=== PATIENT | male | born 1945 | race Caucasian/White ===

== ENCOUNTER 2018-12-30 06:30 | Day surgery (SDC) | payer MEDICARE, OTHER ==
[~2018-12-30] VITALS: Ht 180.3 cm; Wt 78.9 kg
[~2018-12-30 06:30] MED LIST: LEVOTHYROXINE50 MCG; LEVOTHYROXINE50 MCG PO; MULTI VITAMIN1 EACH PO; PRAVASTATIN SOD20 MG PO
--- NOTE | 2018-12-30 08:12 | NUR ---
12/30/18 0812 Dina Berry 0803- PT TO PACU. AROUSES TO TOUCH AND VOICE. DENIES PAIN/N/V. BREATHING EASY, UNLABORED SPO2 >95% ON RA. 0810- PT CONTINUES TO REST W/O COMPLAINTS OF P/N/V.
--- NOTE | 2018-12-30 09:26 | NUR ---
PT IS ALERT, ORIENTED AND SUPPORTED BY HIS TAHIRA. ROUTINE SCOPE FOR PT, DID NOT LIKE NOT BEING ABLE TO CELEBRATE FATHER'S DAY BECAUSE OF PREP. FEW QUESTIONS, EXTENDED A BLESSING. WILL FOLLOW NEEDED
--- NOTE | 2018-12-31 10:17 | OR ---
[facility] [address] [place], [place] [address] Signed DATE OF OPERATION: 12/30/2018 SURGEON: Queenie Perkins MD PREOPERATIVE DIAGNOSES: 1. History of hyperplastic polyp in 2013. 2. Family history of colon cancer in a maternal 1st cousin. POSTOPERATIVE DIAGNOSIS: Possible polyp of cecum (excised), minimal diverticular change. PROCEDURE PERFORMED: Total colonoscopy to cecum with cold morcellation polypectomy x1. ANESTHESIA: Intravenous sedation, fentanyl 100 mcg, Versed 5 mg. INDICATION: This 73-year-old white man is a patient of Dr. Alhaji Haro and known to me from the past, having undergone colonoscopy in 2013, at which time, he was found to have a hyperplastic polyp. He is asymptomatic. He does have family history of colon cancer in a maternal 1st cousin. He is admitted at this time to undergo colonoscopy. He understands the risks of bleeding, infection, and perforation. FINDINGS: The prep was excellent. Complete colonoscopy was undertaken to the cecum without question. There was an area highly suggestive though not certain as an adenomatous polyp in the region of the cecum. This was excised with cold morcellation technique. There were few scattered diverticula but no other findings of concern. DESCRIPTION OF PROCEDURE: The patient was brought to the endoscopy suite and placed in lateral decubitus position, given intravenous sedation to a point of slurred speech and nystagmus. Full cardiopulmonary monitoring was maintained. Digital rectal examination was normal. The prostate was palpably without sign of nodule. The Olympus video colonoscope was passed in the rectum and manipulated throughout the colon noting a few scattered diverticula. Ultimately, the cecum was entered and irrigation undertaken. The scope was withdrawn in the distal cecum, was a small mucosal abnormality that was suggestive though not diagnostic of polyp. Narrow-band imaging confirmed this as well. Multiple morcellation bites were taken of the lesion to excise it and specimen passed for Pathology. The Electronically Signed By: QUEENIE PERKINS MD 12/31/18 1017 PATIENT NAME: TRINH GREENWOOD OPERATIVE REPORT DATE OF : 45 REPORT #: [id number] PHYSICIAN: QUEENIE PERKINS MD PCP: ALHAJI HARO DO REPORT IS CONFIDENTIAL AND NOT TO BE RELEASED WITHOUT AUTHORIZATION [facility] [address] [place] [id number] Signed scope was withdrawn from that point and examination throughout showed no sign of other abnormality other than a few diverticula. Retroflexed view of the rectum was normal. Scope was removed and the patient was taken to recovery room in good condition. CONCLUDING DIAGNOSIS: Probable polyp of cecum excised. PLAN: Repeat colonoscopy in 5 years. Irrespective of the histology of the biopsy given family history. MD SOSA Chanel/RETAL /[id number] cc: Alahji Haro DO Copies: ALHAJI HARO DO ~ Electronically Signed By: QUEENIE PERKINS MD 12/31/18 1017 PATIENT NAME: TRINH GREENWOOD OPERATIVE REPORT DATE OF : 45 REPORT #: [id number] PHYSICIAN: QUEENIE PERKINS MD PCP: ALHAJI HARO DO REPORT IS CONFIDENTIAL AND NOT TO BE RELEASED WITHOUT AUTHORIZATION
== END 2018-12-30 08:47 | disposition home or self-care (01) ==
LOC: DS 06:30 → OPS 06:30 → DS 06:45 → OPS 08:47
PROVIDERS: Surgery
PROC: 0DBH8ZZ Excision of Cecum, Via Natural or Artificial Opening Endoscopic (ICD-10-PCS; principal; 2018-12-30 06:45)
DX: Z12.11 Encounter for screening for malignant neoplasm of colon (principal); D12.0 Benign neoplasm of cecum; K57.30 Diverticulosis of large intestine without perforation or abscess without bleeding; E03.9 Hypothyroidism, unspecified; E78.5 Hyperlipidemia, unspecified; G47.30 Sleep apnea, unspecified; Z86.010 Personal history of colon polyps; Z80.0 Family history of malignant neoplasm of digestive organs; Z85.46 Personal history of malignant neoplasm of prostate
CPT/HCPCS: 99153; G0500; J2250; J3010; J7120

== ENCOUNTER 2024-12-05 09:33 | Day surgery (SDC) | payer MEDICARE, OTHER ==
[~2024-12-05] VITALS: Ht 180.3 cm; Wt 81.6 kg
[~2024-12-05 09:33] MED LIST changes: +CEFAZOLIN SODIUM 2 GM/20 ML SYR IV SCH; +CHLORTHALIDONE25 MG PO; +IBLOOD GLUCOSE TEST STRIP 1 EA TEST VI PRN; +LACTATED RINGER'S 1,000 ML IV SCH; +LEVOTHYROXINE75 MCG PO; +LIDOCAINE HCL 1% 5 ML SDV INJ ONE; +LOSARTAN POTASS25 MG PO; +METOPROLOL SUCC50 MG PO; +MIDAZOLAM HCL 5 MG/5 ML VIAL IV PRN; +POTASSIUM CHLO10 ME1 PO; +fentaNYL citrate 100 MCG/2 ML VIAL IV PRN
[2024-12-05 09:52] VITALS: BP 155/74
[2024-12-05] MEDS ORDERED: fentaNYL citrate 100 MCG/2 ML VIAL ONE (11:23)
[2024-12-05] MEDS ORDERED: MIDAZOLAM HCL 5 MG/5 ML VIAL ONE (11:23)
--- NOTE | 2024-12-05 12:23 | NUR ---
12/05/24 [place] [facility] Temple 1210 PT TO PACU AWAKE AND ALERT DENIES PAIN AND NAUSEA. PT CONVERSING WITH STAFF. 1220 DR PERKINS AT BEDSIDE EXPLAINING PROCEDURE TO PT.
[2024-12-05 12:45] VITALS: BP 138/76
--- NOTE | 2024-12-09 11:00 | OR ---
[facility] [facility] [address] [place], [place] [address] Signed DATE OF OPERATION: 12/05/2024 SURGEON: Queenie Perkins MD PREOPERATIVE DIAGNOSIS: History of multiple polyps in 2023 including serrated adenoma, splenic flexure. POSTOPERATIVE DIAGNOSIS: Small polyp proximal ascending colon and sigmoid diverticulosis. PROCEDURE: Total colonoscopy to cecum with cold morcellation polypectomy x1. ANESTHESIA: Intravenous sedation fentanyl 100 mcg and Versed 4 mg. INDICATION: This 79-year-old white man is a patient of Megan Vance and underwent colonoscopy by [facility] in August 2023, was found to have a serrated adenoma at the splenic flexure. A cold snare polypectomy x3 and cold morcellation polypectomy x1. Other polyps were adenomatous as well. He currently has no symptoms of bleeding, diarrhea, or constipation. He has no family history of colon cancer. He is admitted at this time to undergo colon evaluation based on the serrated adenoma and other multiple polyps previously. The risk of bleeding, infection, and perforation related to colonoscopy was reviewed with him. He understands and wished to proceed. FINDINGS: The prep was good. Complete colonoscopy was undertaken of the cecum. There was a small polyp of the proximal ascending colon which was excised with cold morcellation technique. There were few scattered diverticula in the sigmoid. There were no other findings of note. DESCRIPTION OF PROCEDURE: The patient was brought to the endoscopy suite and placed in lateral decubitus position, given intravenous sedation to the point of slurred speech and nystagmus. Digital rectal examination was normal. Olympus video colonoscope was passed in the rectum and manipulated throughout the colon noting diverticula of the sigmoid. The scope was ultimately advanced to the cecum. The ileocecal valve and appendiceal orifice were normal. The scope was withdrawn to the proximal ascending colon was a small adenomatous polyp, which was excised with cold morcellation technique. Further withdrawal of scope Electronically Signed By: QUEENIE PERKINS MD 12/09/24 [facility] PATIENT NAME: TRINH LUA OPERATIVE REPORT DATE OF : 45 REPORT #: [id number] PHYSICIAN: QUEENIE PERKINS MD PCP: MEGAN VANCE PA-C REPORT IS CONFIDENTIAL AND NOT TO BE RELEASED WITHOUT AUTHORIZATION [facility] [address] [facility] [place] [address] Signed showed no other abnormality other than the diverticula as previously noted. Retroflexed view of the rectum was normal. Scope was removed. The patient was taken to the recovery room in good condition. CONCLUDING DIAGNOSIS: Small polyp x1. PLAN: Recommend repeat colonoscopy in 7 to 10 years, sooner if symptoms should develop. Recommend high-fiber diet as well. MD SOSA Chanel/KIMBERLEY /[id number] cc: WILMAN Leach Copies: ~ Electronically Signed By: QUEENIE PERKINS MD 12/09/24 1100 PATIENT NAME: TRINH LUA OPERATIVE REPORT DATE OF : 45 REPORT #: [id number] PHYSICIAN: QUEENIE PERKINS MD PCP: MEGAN VANCE PA-C REPORT IS CONFIDENTIAL AND NOT TO BE RELEASED WITHOUT AUTHORIZATION
--- NOTE | 2024-12-10 17:50 | PATH ---
[facility] [address] [facility] [place] [address] Signed SPECIMEN(S): A ASCENDING COLON POLYP SPECIMEN SOURCE: A. ASCENDING COLON POLYP CLINICAL HISTORY: 08/2023 history of serrated adenoma and tubular adenomas, polyp FINAL PATHOLOGIC DIAGNOSIS: Ascending colon polyp: - Tubular adenoma (three fragments). JVR:clv MICROSCOPIC EXAMINATION: Histologic sections of all submitted blocks are examined by light microscopy. These findings, together with the gross examination, support the pathologic diagnosis. GROSS DESCRIPTION: The specimen, labeled and designated "Valentine ascending colon polyp," is received in formalin and consists of three clarke soft tissue fragments, ranging from 0.3-0.4 cm. Entirely submitted in (A1). VB (under the direct supervision of a pathologist) The Gross Description was prepared using a voice recognition system. The report was reviewed for accuracy; however, sound-alike word errors, addition and/or deletions may occur. If there is any question about this report, please contact Client Services. PERFORMING LABORATORY: Technical component was performed by [facility], [address] [place] [id number] (CLIA# [id number]). Professional interpretation was performed by [facility], [address] [place] [id number] (CLIA#: [id number]). Diagnostician: Spenser Romano MD Pathologist Electronically Signed 12/10/2024 Copies: PATIENT NAME: TRINH LUA PATHOLOGY DATE OF : 45 REPORT #: [id number] PHYSICIAN: FRIDA GARCIA PCP: MEGAN MARQUEZ PA-C REPORT IS CONFIDENTIAL AND NOT TO BE RELEASED WITHOUT AUTHORIZATION [address] [address] Signed ~ PATIENT NAME: TRINH LUA PATHOLOGY DATE OF : 45 REPORT #: [id number] PHYSICIAN: FRIDA GARCIA PCP: MEGAN MARQUEZ PA-C REPORT IS CONFIDENTIAL AND NOT TO BE RELEASED WITHOUT AUTHORIZATION
== END 2024-12-05 12:55 | disposition home or self-care (01) ==
LOC: DS 09:33
PROVIDERS: ATTEND Surgery
PROC: 0DBK8ZX Excision of Ascending Colon, Via Natural or Artificial Opening Endoscopic, Diagnostic (ICD-10-PCS; principal; 2024-12-05 11:00)
DX: D12.2 Benign neoplasm of ascending colon (principal); K57.30 Diverticulosis of large intestine without perforation or abscess without bleeding; I10 Essential (primary) hypertension; G47.30 Sleep apnea, unspecified; Z79.899 Other long term (current) drug therapy; Z80.0 Family history of malignant neoplasm of digestive organs; Z96.651 Presence of right artificial knee joint
CPT/HCPCS: 99153; G0500; J0690; J2250; J3010; J7121